=== PATIENT | female | born 2005 | race Caucasian/White ===

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

== ENCOUNTER 2024-12-17 22:53 | Emergency (ER) | payer OTHER, SELFPAY ==
[2024-12-17 22:54] VITALS: BP 129/69; PULSE 100; RESP 18; TEMP 36.7; O2SAT 100; BMI 21.2
--- NOTE | 2024-12-17 23:25 | EDS_ITS ---
HPI HPI - GI History of Present Illness Chief Complaint: Abd Pain Informant: patient Narrative Narrative: Gradual onset of right upper quadrant pain that started yesterday, has been colicky, was worse after she ate pizza maybe 30 minutes or less afterwards. No radiation into her shoulder or her back. Nauseated when it is bad. However, she states she has a nausea daily related to her POTS, as she is orthostatic daily as she has been today without any syncopal episodes. She denies any fevers or chills. No vomiting. No problems urinating. No cough. There is no pleuritic nature to this. No recent injuries. She has been having normal stools. No history of any surgeries in the past. [facility] Medical History Postural orthostatic tachycardia syndrome [POTS] Home Medications ?Medication ?Instructions ?Recorded ?Last Taken ?Type pantoprazole 20 mg tablet,delayed 20 mg PO DAILY 12/17 Unknown History release hyoscyamine sulfate 0.125 mg 0.125 mg PO Q6H PRN dyspe psia #16 12/18/24 Unknown Rx tablet (Levsin) tabs Allergy/AdvReac Type Severity Reaction Status Date / Time Fish Containing Products Allergy Anaphylaxis Verified 12/17/24 22:56 Surgical History no surgical history no surgical history Social History Smoking Status: Never smoker ROS ROS ED Constitutional Constitutional ED: Denies chills or fever(s) Eyes Eyes: Denies change in vision or diplopia ENT ENT ED: Denies rhinorrhea or sore throat Cardiovascular Cardiovascular: Denies chest pain or palpitations Respiratory/Chest Respiratory/Chest: Denies cough or dyspnea Gastrointestinal Gastrointestinal: Reports abdominal pain and nausea; Denies diarrhea, melena or vomiting Genitourinary Genitourinary ED: Denies dysuria or hematuria Musculoskeletal Musculoskeletal: Denies back pain or neck pain Integumentary Denies abscess or rash Neurologic Neurologic: Denies headache(s), paresthesias or weakness Psychiatric Psychiatric: Denies anxiety or suicidal thoughts EXAM Physical Exam Const Vital Signs: 12/17/24 22:54 Temperature 98.0 F Temperature Source Temporal Pulse Rate 100 Respiratory Rate 18 Blood Pressure 129/69 H Blood Pressure Mean 89 Pulse Ox 100 Oxygen Delivery Method Room Air Positive well nourished and well developed General Appearance ED: well developed and NAD HEENT Reports moist mucous membranes normocephalic and atraumatic Eyes PERRL and EOMs intact bilaterally Neck full ROM and supple Resp normal respiratory effort and clear to auscultation bilaterally Cardio regular rate, regular rhythm and no murmurs GI non-distended GI Narrative: Tender right upper quadrant epigastrium. No [place]. Otherwise benign abdomen. Auscultation: normoactive bowel sounds Palpation: soft Back/Spine no CVA tenderness General Back: other FROM Extremity normal to inspection General Extremety ED: Negative for edema, pulses abnormal or tenderness General Extremity: Negative for edema or pulses abnormal Neuro oriented x3, CN's II-XII intact bilaterally and no sensory deficits noted Sensorium / Orientation: awake and alert Motor Exam: strength 5/5 throughout Skin no rashes or lesions noted and no wounds MDM MDM Lab Data Labs: Laboratory Results - last 24 hr 12/17/24 23:20 WBC 7.5 RBC 4.36 Hgb 11.8 L Hct 36.2 L MCV 83.0 MCH 27.1 MCHC 32.6 RDW Std Deviation 43.2 RDW Coeff of Fartun 14.3 Plt Count 308 MPV 11.2 Immature Gran % (Auto) 0.800 Neut % (Auto) 49.8 Lymph % (Auto) 41.6 H [place] % (Auto) 5.5 Eos % (Auto) 2.0 Baso % (Auto) 0.3 Absolute Neuts (auto) 3.7 Absolute Lymphs (auto) 3.11 Nucleated RBC % 0 Sodium 139 Potassium 4.0 Chloride 107 Carbon Dioxide 19.9 L Anion Gap 12 BUN 11 Creatinine 0.79 Estim Creat Clear Calc 113.47 Est GFR (MDRD) Non-Af 109 BUN/Creatinine Ratio 13.6 Glucose 122 H Calcium 9.5 Total Bilirubin 0.24 AST 15 ALT 5 Alkaline Phosphatase 64 Total Protein 6.7 Albumin 4.3 Globulin 2.4 Albumin/Globulin Ratio 1.8 Lipase 54 Serum , Qual NEGATIVE Discharge Plan Triage Chief Complaint: Abd Pain ED Provider: Napoleon Bahena Dx/Rx/DC Orders Clinical Impression: Abdominal pain, RUQ Instructions: Abdominal Pain Prescriptions: New hyoscyamine sulfate [Levsin] 0.125 mg tablet 0.125 mg PO Q6H PRN (Reason: dyspepsia) Qty: 16 0RF No Action pantoprazole 20 mg tablet,delayed release (DR/EC) 20 mg PO DAILY Primary Care Provider: Duran Rendon Referrals: Duran Rendon MD [Primary Care Provider] - Keep [place] appointment Print Language: [place] Disposition Disposition: Home, Self Care
[2024-12-17] MEDS: Ondansetron 4 MG/2 ML Vial IV (23:32)
[2024-12-17] MEDS: Dicyclomine 10 MG Capsule 20 MG PO (23:33)
[2024-12-17] MEDS: Lidocaine 2% Viscous15 ML UDC 15 ML PO (23:34)
[2024-12-17] MEDS: Mag Hydrox/Al Hydrox/Simeth 30 ML UDC PO (23:34)
[2024-12-17 23:47] LABS: Internal QC Validated? YES +Cl - CLEAR BKGD; Pregnancy, Serum, hCG Quali. NEGATIVE Negative
[2024-12-17 23:55] LABS: Lipase 54 U/L (13-75)
[2024-12-17 23:56] LABS: Absolute Lymphocyte Count 3.11 X10^3/uL (0.83-4.51); Absolute Neutrophil Count 3.7 X10^3/uL (2.0-7.7); Basophil# 0.02 X10^3/uL; Basophil% 0.3 % (0-1); Eosinophil# 0.15 X10^3/uL; Hematocrit 36.2 % (37-47); Hemoglobin 11.8 g/dL (12.0-15.0); Lymphocyte # 3.11 X10^3/ul (0.83-4.51); Lymphocyte % 41.6 % (19-41); Mean Corp Hgb Conc 32.6 g/dL (32-36); Mean Corpuscular Hgb 27.1 pg (27.0-32.0); Mean Platelet Vol. 11.2 fl (6.2-12.0); Monocyte# 0.41 X10^3/uL; Monocyte% 5.5 % (0-10); NRBC Flagged by Analyzer 0 % (0-5); Neutrophil # 3.72 X10^3/uL (2.7-7.7); Neutrophil % 49.8 % (47-70); Platelet Count 308 K/mm3 (150-450); RBC Distribution Width CV 14.3 % (11.6-14.6); RBC Distribution Width SD 43.2 fl (35.1-43.9); Red Blood Count 4.36 M/mm3 (4.2-5.4); White Blood Count 7.5 K/mm3 (4.4-11.0)
[2024-12-18 00:09] LABS: ALB/GLOB Ratio 1.8 RATIO (0.9-2.4); AST(SGOT) 15 U/L (<=31); Alanine Aminotransfer ALT/SGPT 5 U/L (<=34); Albumin, Serum 4.3 g/dL (3.5-5.0); Alkaline Phosphatase 64 U/L (35-104); Anion Gap 12 (5-15); BUN 11 mg/dL (4-19); BUN/Creat Ratio 13.6 RATIO (10-20); Calcium,Total 9.5 mg/dL (7.6-11.0); Carbon Dioxide 19.9 mmol/L (21.0-32.0); Chloride 107 mmol/L (98-108); Creatinine, Serum 0.79 mg/dL (0.70-1.20); EST Glomerular Filtration Rate 109 (>60); Estimated Creatinine Clearance 113.47 ml/min (50-250); Globulin 2.4 g/dL (2.2-4.2); Glucose 122 mg/dL (70-99); Protein, Total 6.7 g/dL (5.9-8.4); Sodium Level 139 mmol/L (133-145); Total Bilirubin 0.24 mg/dL (0.00-1.30)
[2024-12-18] MEDS: Ketorolac 30 MG/ML Syringe IV (01:12)
[2024-12-18] MEDS: Morphine 4 MG/ML Syringe IV (02:09)
== END 2024-12-18 02:28 | disposition home or self-care (01) ==
PROVIDERS: Emergency Provider Emergency Medicine; PCP Pediatrics; Visit Provider Emergency Medicine
DX: R10.11 Right upper quadrant pain (principal); G90.A Postural orthostatic tachycardia syndrome [POTS]
CPT/HCPCS: 80053; 83690; 84703; 85025; 96374; 96375; 99283; A4216; J2405